=== PATIENT | male | born 1955 | race Caucasian/White ===

== ENCOUNTER 2016-08-30 00:53 | Emergency (ER) | payer BC ==
--- NOTE | ~2016-08-30 | CR72 ---
[facility] A Service of [facility] & [facility] / [facility] RADIOLOGY TEXT RESULTS PATIENT: PILI ADHIKARI LOCATION: [facility] : 51 UNIT #: [id number] AGE: [address]: Hodan Mirza APRN SEX: M ORDER DR: [id number] [facility] [address] [place], [place] [address] [id number] E MR#: [id number] Acc #: [id number] NAME: PILI ADHIKARI : 1955 SEX: M STUDY DATE/TIME: 08/30/2016 1:56 UNIT: [facility] ROOM: STUDY DESCRIPTION: CR Chest Single View Portable Attending Physician: Hodan Mirza A.P.R.N. Ordering Physician: Hodan Mirza A.P.R.N. Primary Care Physician: Pawel Prince M.D. MEDICAL IMAGING REPORT This report is preliminary unless electronic signature is present EXAM Portable chest, 08/30/2016 INDICATION Shortness of air x2 days and cough. COMPARISON 11/01/2011 FINDINGS A portable view of the chest was obtained. The heart size and vascularity are normal and the lungs are clear and the bones are unremarkable. IMPRESSION No active disease. Dictated by... Ryan Smiley M.D. THIS IS AN ELECTRONICALLY VERIFIED REPORT Ryan Smiley M.D. at 08/30/2016 5:53 AM ESTELITA/cornelio TD: 08/30/2016 03:13 JOB #: [id number] MEDICAL IMAGING REPORT Page 1 of 1 COPY
[~2016-08-30 00:53] MED LIST: ACIPHEX20 MG PO; ADVIL200 M1 PO; ASPIRIN ENTERI325 M1 PO; ASPIRIN81 M1 PO; HYDROCODON-ACE1 EAC7 PO; HYDROCODON-ACE1 EACH PO; LEVAQUIN PO; LIPITOR; METOPROLOL TAR25 MG PO; METOPROLOL TART25 MG PO; PREDNISONE PO; PROTONIX PO; TYLENOL325 M1 PO; VICODIN 5/500 T1 TAB PO; [UNRECOGNIZED DRUG - OTHER] PO
== END 2016-08-30 02:30 | disposition home or self-care (01) ==
LOC: CED 00:53
DX: R04.0 Epistaxis (principal); I48.91 Unspecified atrial fibrillation; I10 Essential (primary) hypertension; Z90.49 Acquired absence of other specified parts of digestive tract; Z88.0 Allergy status to penicillin; Z88.8 Allergy status to other drugs, medicaments and biological substances; Z91.040 Latex allergy status
CPT/HCPCS: 71010; 99284